=== PATIENT | male | born 1965 | race Asian ===

== ENCOUNTER 2023-10-13 05:55 | Inpatient (IN) | payer BC, SELFPAY ==
[2023-10-08 09:33] VITALS: BMI 25.5
[2023-10-08 10:04] LABS: % Basophils 1.3 % (0-2); % Eosinophils 1.5 % (0-6); % Immature Granulocytes 0.3 % (0-0.5); % Lymphocytes 22.8 % (20.5-51.1); % Monocytes 7.5 % (1.7-9.3); % Neutrophils 66.6 % (42.2-75.2); Absolute Basophils 0.1 10^3/uL (0-0.2); Absolute Eosinophils 0.2 10^3/uL (0-0.7); Absolute Lymphocytes 2.2 10^3/uL (1.2-3.4); Absolute Monocytes 0.7 10^3/uL (0.1-0.6); Absolute Neutrophils 6.5 10^3/uL (1.4-6.5); Hematocrit 47.3 % (39.0-52.0); Hemoglobin 15.5 g/dL (13.0-18.0); Mean Corp Hgb Conc. 32.8 g/dL (33.0-37.0); Mean Corpuscular Hgb 28.3 pg (27.0-31.0); Mean Corpuscular Volume 86.5 fL (80.0-94.0); Mean Platelet Volume 9.3 fL (7.4-10.4); Nucleated Red Blood Cells % 0 % (-); Platelet Count 322 10^3/uL (130-400); Red Blood Cell Count 5.47 10^6/uL (4.70-6.10); Red Cell Dist. Width 14.2 % (11.5-14.5); White Blood Cell Count 9.7 10^3/uL (4.8-10.8)
[2023-10-08 10:13] LABS: Blood Urea Nitrogen 14 mg/dl (9-20); Calcium 9.5 mg/dl (8.4-10.2); Carbon Dioxide 23 mmol/L (22-30); Chloride 106 mmol/L (98-107); Estimated Creatinine Clearance 106 ml/min; Glucose 103 mg/dl (70-99); INR 0.99; PT 13.3 Sec (11.4-14.6); Potassium 3.8 mmol/L (3.5-5.1); Sodium 137 mmol/L (135-145); eGFR > 60.00
[2023-10-08 10:14] LABS: APTT 40.2 Sec (23.4-35.0)
--- NOTE | 2023-10-11 12:13 | PTCARENOTE ---
Fariba in Dr. Turner's office made aware of PTT 40.2.
[2023-10-13] VITALS (9 sets, daily range): BP systolic 95–142; BP diastolic 59–96; BMI 25.8; BMI 25.7
[2023-10-13] MEDS: PERIDEX 0.12% ORAL RINSE 15 ML PO (06:22)
[2023-10-13] MEDS: BACTROBAN NASAL 1 GRAM NASAL (06:22)
[2023-10-13] MEDS: NSS 500 IV (06:23)
[2023-10-13 06:37] LABS: Glucose - Point of Care 117 mg/dl (70-99)
--- NOTE | 2023-10-13 06:49 | W.SUR.PREOP ---
Pre-Operative Surgical Note
-
I have examined this patient prior to the performance of the scheduled procedure.
The patient's condition is unchanged from the time of the current History and
Physical and the patient is able to undergo the scheduled procedure.
--- NOTE | 2023-10-13 10:20 | W.SUR.POST ---
Surgical Immediate Post Op
Note
Pre Op Diagnosis: carotid stenosis
Post Op Diagnosis: same
Procedure Performed: Left CEA with bovine pericardial patch angioplasty and EEG monitoring
Primary Surgeon: Johnny
Assist: PATRICIO Delgado
Anesthesia: General
Estimated Blood Loss: 75cc
Fluids: see anesthesia flow sheet
Drains/Shunts: none
Specimens/Cultures: carotid plaque
Doppler/Duplex/Angio (Y/N): Y
Complications: none
Operative Findings: Woke from anesthesia moving all extremities
[2023-10-13 11:08] LABS: Glucose - Point of Care 134 mg/dl (70-99)
[2023-10-13 11:09] LABS: Hemoglobin 13.6 g/dL (13.0-18.0); Mean Corp Hgb Conc. 33.2 g/dL (33.0-37.0); Mean Corpuscular Hgb 28.1 pg (27.0-31.0); Mean Corpuscular Volume 84.7 fL (80.0-94.0); Mean Platelet Volume 9.5 fL (7.4-10.4); Platelet Count 263 10^3/uL (130-400); Red Blood Cell Count 4.84 10^6/uL (4.70-6.10); Red Cell Dist. Width 14.2 % (11.5-14.5); White Blood Cell Count 11.5 10^3/uL (4.8-10.8)
[2023-10-13] MEDS: NEO-SYNEPHRINE 250 IV (11:10)
[2023-10-13 11:23] LABS: Blood Urea Nitrogen 10 mg/dl (9-20); Calcium 8.5 mg/dl (8.4-10.2); Carbon Dioxide 23 mmol/L (22-30); Chloride 108 mmol/L (98-107); Estimated Creatinine Clearance 123 ml/min; Glucose 156 mg/dl (70-99); Sodium 135 mmol/L (135-145); eGFR > 60.00
[2023-10-13] MEDS: DILAUDID 0.5 MG IV (11:23)
[2023-10-13 11:29] LABS: INR 1.08
[2023-10-13 11:30] LABS: APTT 38.5 Sec (23.4-35.0)
[2023-10-13] MEDS: NSS 1000 IV ×2 (11:34→21:32)
--- NOTE | 2023-10-13 11:35 | OR.RPT ---
Operative Report
Operative Report
PROCEDURE DATE: 10/13/2023
Preoperative diagnosis: Critical asymptomatic left carotid artery stenosis
Postoperative diagnosis: Same
Procedure: Left carotid endarterectomy with bovine pericardial patch angioplasty and intraoperative EEG/SSEP monitoring.
Surgeon: Johnny
[employer] Ground Operations Supervisor: Jenny Delgado COMMERCIAL PROPERTY ADMINISTRATOR, required for all portions of procedure including traction/countertraction, following of suture line, assistance with closure.
Complications: None
Anesthesia: General
Indications for procedure:
Severe bilateral carotid stenoses, underwent right carotid revascularization prior to CABG. Now brought for elective left carotid revascularization. Risk/benefit/alternatives all fully discussed. Patient understood all wish to proceed.
Description of procedure:
Patient was identified brought to the operating room placed on the table in supine position. After the administration of anesthesia, I mapped the carotid bifurcation with the ultrasound. I did note a relatively high carotid bifurcation in the
neck. After the adequate administration of anesthesia and perioperative antibiotics he was prepped and draped in the standard surgical fashion. A standard preoperative timeout was undertaken and everybody was in agreement the plan. A standard
longitudinal incision was made in the left neck that was carried through the skin subcutaneous tissue. Using the electrocautery dissection was carried through the platysma muscle layer and then alongside the anterior medial border of the
sternocleidomastoid muscle. Then using a combination of sharp dissection with the Metzenbaum scissors and electrocautery I dissected along the anterior medial border of the internal jugular vein. The common facial vein branch was ligated between
silk ties and then divided. In addition, there was a slightly higher vein branch that I had to ligate carefully between silk ties and divided. Care was taken to isolate only the vein branches. I then deepened my retraction. The common carotid
artery was identified and carefully dissected away from the surrounding structures take great care to avoid any injury to the structures. I dissected up to the bifurcation and then onto the internal carotid artery. The distal internal carotid
artery was noted to be soft. It was carefully circumferentially dissected here take great care to avoid any injury to the surrounding structures. A vessel loop was passed around it. Note the hypoglossal nerve was seen and preserved from harm's
way. At this point, the common carotid artery was carefully circumferentially dissected and a vessel loop passed around and double looped but not yet tightened.. Note the vagus nerve was protected from harm's way. The patient was given an
appropriate dose of heparin 7000 units. Next I dissected the anterior surface of the external carotid artery and superior thyroid branches. These were then carefully circumferentially dissected with minimal mobilization and vessel loops passed
around these which were double looped but not yet tightened. After 3 minutes of heparin circulation time and confirmation of optimization of the blood pressure with my anesthesiology colleagues, I clamped the distal internal carotid artery where it
was soft. There was no immediate EEG or SSEP changes. After 1 minute of test clamp time there was no changes noted. Therefore at this point, the vessel loops on the external carotid artery and superior thyroid branches were tightened and the
common carotid artery was clamped where it was soft proximally. An arteriotomy was made on the common carotid artery with an 11 blade and extended using a Preciado scissor. The arteriotomy was extended onto the mid to distal internal carotid artery.
We encountered dense plaque with hemorrhagic central component, of mushy consistency. Plaque was very significant and was nearly occlusive completely. A [place] was then used to endarterectomized the plaque. An endarterectomy plane was created, and
the plaque was then endarterectomized. Distally I feathered the plaque out to a nice clean endpoint in the distal internal carotid artery. Next I endarterectomized the intima back to normal intima in the common carotid artery, and the intima was
cut flush there. I then grasped the plaque and everted plaque out of the origin of the external carotid artery. The plaque was then sent off for specimen. The origin of the external carotid artery was carefully visualized and any fine debris were
removed with fine forceps. Proximal and distal endpoints were then carefully inspected. Any fine debris was removed with fine forceps, and the intima was noted to be nicely adherent proximally and distally. Next any fine debris were removed
throughout the endarterectomy bed with fine forceps. Interrupted 7-0 Prolene tacking sutures were placed to tack the distal endpoint. I then flushed heparinized saline. I was very satisfied. Then, I used a bovine pericardial patch to sew a patch
angioplasty with a running 6-0 Prolene suture. Prior to completing and tying down my suture line, I backbled sequentially each branch and reclamped each branch prior to unclamping the next branch. I then irrigated with heparinized saline. Then I
completed and tied down my suture line. We then restored flow in the common carotid and external carotid arteries. Finally, we released flow in the internal carotid artery. There was excellent pulsatile flow in all 3 vessels. There was an
excellent Doppler signal in the internal carotid artery distal to the patch with a good normal low resistance Doppler signal. There was a good Doppler signal in the external carotid artery as well. In order to be certain, I performed on table
duplex with a sterile ultrasound probe, confirming widely patent endarterectomy site and internal carotid artery distal to the patch. Spectral Doppler demonstrated normal velocity profile as well. 6-0 Prolene [id number] sutures were placed
along any bleeding points along the suture line. Protamine was given to reverse the heparin. Hemostasis was completely achieved. This took a bit longer given the oozing nature of the tissues, and some needle hole bleeding noted along the suture
line. But hemostasis was then fully achieved. We then irrigated and confirmed full hemostasis. I then closed in layers with 2-0 Vicryl layer to reapproximate the sternocleidomastoid muscle, followed by 3-0 Vicryl platysma muscle running layer,
followed by 4 Monocryl subcuticular stitch. Dermabond was applied. The patient tolerated procedure well. He awoke moving all extremities to command. His tongue did appear to veer slightly to the left. However, of note the hypoglossal nerve was
clearly noted and preserved from harm's way as referenced above, however due to the high bifurcation we had used an [employer] retractor at the distal/cephalad most region and likely this was mild neuropraxia.
[2023-10-13 12:25] LABS: Magnesium 1.8 mg/dl (1.6-2.3)
[2023-10-13 12:31] LABS: Glucose - Point of Care 133 mg/dl (70-99)
--- NOTE | 2023-10-13 12:55 | PTCARENOTE ---
Addendum entered by Anila Yee RN 10/13/23 15:09:
tongue deviation to left note post up. Upon arriving post up the same tongue deviation to left continue to be noted
Original Note:
1200 transfer from PACU s/p left carotid. transfer via bed. AAO x3. left neck pain 5/10 pain scale level. ICE pack to left neck incision. pain medications offered per prn order, pt refusing at this time, stating that pain relieved by ICe pack at
this time. Neuro check done per protocol , see neuro assessment form. left arterial A/line Zero, + blood returned. left A/lien and RT upper arm blood correlate. Abdomen soft non-tender. pt currently on clear liquid diet. left neck incision ,
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 No edema peripheral pulses strong. Blood sugar 133/no coverage.
[2023-10-13] MEDS: ROXICODONE 5 MG PO ×3 (13:05→21:31)
--- NOTE | 2023-10-13 14:25 | CON.INTV ---
Consultation
Consultation Request
Date/Time Consultation Requested: 10-13-23
Date/Time Consultation Performed: 10-13-23
Requesting Provider: Dr Turner
Performing Provider: Dr Rankin
Reason for Consultation: L
Medical History
-
Chief Complaint: s/p L
History of Present Illness:
Mr Bo Rivera is a 58/M for planned L . Known h/o bilateral CAD, s/p R 07-21-23 prior to CABG as was felt he will be at high cerebrovascular risk during cardiac surgery.
Followed by Dr Turner at office, prepared for L
Seen at ICU, s/p L 10-13-23
Awake, mild L neck incisional pain, no reported change in chronic L tongue deviation to L upon protrusion
Past h/o smoking, not on home O2 or BDs
Past Medical History
Past Medical History: Other (see A&P for PMH/PSH)
Social History
Tobacco: Former Smoker
Alcohol: None
Drug: None
Personal:
Living: With Family
Family History
Family History: Reviewed & Not Pertinent
Allergies / Home Medications
Allergies
Allergy/AdvReac Type Severity Reaction Status Date / Time
blue crabs Allergy Intermediate Itching Uncoded 10/13/23 06:35
Home Medications
Medication Instructions Recorded Confirmed Last Taken Type
aspirin 81 mg tablet,delayed 81 mg PO DAILY Blood Clot 06/30/23 10/13/23 10/13/23 04:00 History
release Prevention/Tx
atorvastatin 20 mg tablet 20 mg PO HS High Cholesterol 06/30/23 10/13/23 10/12/23 20:00 History
metoprolol succinate 25 mg 25 mg PO NOON Heart 06/30/23 10/13/23 10/12/23 12:00 History
tablet,extended release 24 hr Disease/Condition
pantoprazole 40 mg tablet,delayed 40 mg PO HS Gastrointestinal Issue 1010/13/23 10/12/23 20:00 History
release
acetaminophen 325 mg tablet 650 mg PO Q6HPRN PRN mild 07/27/23 10/13/23 10/12/23 12:00 Rx
pain,headache #0 tabs
clopidogrel 75 mg tablet 75 mg PO DAILY Blood clot 07/27/23 10/13/23 10/13/23 04:00 Rx
prevention/tx #90 tabs
empagliflozin 25 mg tablet 25 mg PO DAILY Diabetes #90 tabs 07/27/23 10/13/23 10/09/23 Rx
(Jardiance)
metformin 500 mg tablet 500 mg PO BID@0800,1700 Diabetes 07/27/23 10/13/23 10/13/23 04:00 Rx
#90 tabs
valsartan 80 mg tablet 80 mg PO HS Blood Pressure 10/05/23 10/13/23 10/12/23 20:00 History
Review of Systems
-
History Source: Patient
Cardiac: Other (mild L neck incisional pain)
Vitals / Labs / Diagnostic Testing
Vital Signs
Temp Pulse Resp BP Pulse Ox
98.6 F 62 9 103/66 93
10/13/23 12:16 10/13/23 12:16 10/13/23 12:07 10/13/23 12:16 10/13/23 12:05
Lab Data
10/13/23 11:01
10/13/23 11:01
Laboratory Results
10/13/23
11:01
PT 14.0
INR 1.08
APTT 38.5 H
Diagnostic Testing:
Physical Exam
-
HEENT: Normocephalic and Moist Mucous Membranes
Cardiovascular: Regular Rhythm, Murmur (n), Peripheral Edema and Calf Tenderness
Respiratory: Clear and Non-Labored Respirations
GI: Soft, Non Distended and Non Tender
Neurology: AO x 3 and No Motor Deficits
Skin: Dry
General: Respiratory Distress (n)
Assessment
-
Assessment:
Mr Bo Rivera is a 58/M for planned L . Known h/o bilateral CAD, s/p R 07-21-23 prior to CABG as was felt he will be at high cerebrovascular risk during cardiac surgery. Followed by Dr Turner at office, prepared for L
Impression:
S/p L 10-13-23
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
CAD, s/o CABGx3 07-23-23, also LA appendage ligation
Bilateral carotid disease s/p R CEA 07/21/23
Hypertension
Hyperlipidemia
Type 2 diabetes
Syncope
Former smoker, quit in November 2022
Past h/o ETOH use
Positive snoring, never had a sleep study
PAD with claudication
GERD
Plan
Postoperative surgical intensive care unit monitoring for L 10-13
Supplemental oxygen as needed
Incentive spirometry
Aspiration precautions
Noted past h/o smoking, did resp well post R and CABG in Jul 2023
Neuro and vascular checks per protocol
Vascular surgery following-correspondence and operative notes reviewed
Continue ASA, statin
DVT prophylaxis
Early nutrition
Early mobilization
Critical care time: 35 min
Diagnostic Data:
CXR 10-13-23: portable, lordotic. No gross pulm infiltrates.
CT Scan: H&N 07/08/23- Severe mixed soft and calcific plaque in the bilateral carotid bulbs resulting in focal approximately 82% stenosis of the proximal right internal carotid artery and approximately 84% stenosis of the proximal left internal
carotid artery.
TTE 07-26-23
CONCLUSIONS
Preserved left ventricular function with estimated ejection fraction of 55 to 60%.
Basal inferolateral hypokinesis suspected.
Small pericardial effusion.
Echo: 06/17/23- 1. Normal left ventricular function and EF 65-70%. Stage I diastolic dysfunction. Mild mid to distal septal hypokinesis.
2. Normal RV function.
3. Trace AR and MR.
[facility] 06/24/23: moderate LM ostial lesion, mild-mod prox and mid LAD lesions, severe distal LAD lesion, severe RI and prox lesions, severe RCA, occluded circ, mild PH
--- NOTE | 2023-10-13 15:11 | PTCARENOTE ---
No changed in assessment noted. pt c/of of mild pain. Refusing pain medications per prn order Ice pack applied to left neck incision left neck incision no change in appearance noted able to tolerate clear liquid diet with no difficulties
--- NOTE | 2023-10-13 16:20 | W.PV.INTER ---
VPI Note
Pre Admission Note
Functional Status: Light Work
Ambulation: Ambulate Independently
Pre Op Medications
Pre Op ASA: Yes
Pre Op Statin: Yes
Pre Op CHARLEY Inhibitor/ARB: Yes
Pre Op P2y12 Antagonist: Clopidogrel
Pre Op Beta Blockers: Chronic > 30 Days
Pre Op Chronic Anticoagulant: None
Pre Op Cilostazol: No
Post Op Medications
Post Op ASA: Yes
Post Op Statin: Yes
Post Op CHARLEY Inhibitor/ARB: Yes
Post Op P2y12 Antagonist: Clopidogrel
Post Op Beta Blockers: Chronic > 30 Days
Post Op Chronic Anticoagulant: None
Post Op Cilostazol: No
Modified [place]
Pre Op: 0
Post Op: 0
[2023-10-13] MEDS: HEPARIN 5000 UNITS SC ×2 (16:29→23:09)
[2023-10-13 17:27] LABS: Glucose - Point of Care 148 mg/dl (70-99)
--- NOTE | 2023-10-13 17:30 | PTCARENOTE ---
patient in bed. Neuro checks tongue deviation to left continue to be noted. 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 Oxycodone adm for pain
5/10 pain scale level dinner order call kimble with reach
--- NOTE | 2023-10-13 19:46 | PTCARENOTE ---
pt received. a&ox3. krysta gtt infusing to maintain SBP 100-165. IVF infusing. SR on monitor. + pedal pulses. on RA, clear breath sounds noted. urinal at bedside. L carotid incision with mild swelling, intact and SAMPLER PICKUP. L radial A line zeroed. pt care
ongoing.
[2023-10-13] MEDS: LIPITOR 20 MG PO (21:31)
[2023-10-13] MEDS: PROTONIX 40 MG PO (21:32)
--- NOTE | 2023-10-13 23:57 | PTCARENOTE ---
patient reassessed. krysta gtt infusing, titrating per parameters. assessments unchanged, carotid site MELI with mild swelling. neurovascular checks in tact. denies pain at this time. pt care ongoing.
[2023-10-14] VITALS: BP 105/68
[2023-10-14 04:00] VITALS: BP 114/78
[2023-10-14 04:11] LABS: INR 1.09; PT 14.1 Sec (11.4-14.6)
[2023-10-14 04:12] LABS: APTT 38.6 Sec (23.4-35.0)
[2023-10-14 04:14] LABS: Hematocrit 37.9 % (39.0-52.0); Hemoglobin 12.9 g/dL (13.0-18.0); Mean Corpuscular Hgb 28.5 pg (27.0-31.0); Mean Corpuscular Volume 83.7 fL (80.0-94.0); Mean Platelet Volume 9.6 fL (7.4-10.4); Platelet Count 279 10^3/uL (130-400); Red Blood Cell Count 4.53 10^6/uL (4.70-6.10); White Blood Cell Count 11.9 10^3/uL (4.8-10.8)
[2023-10-14 04:24] LABS: Blood Urea Nitrogen 12 mg/dl (9-20); Calcium 8.9 mg/dl (8.4-10.2); Carbon Dioxide 21 mmol/L (22-30); Chloride 104 mmol/L (98-107); Estimated Creatinine Clearance 121 ml/min; Glucose 138 mg/dl (70-99); Sodium 136 mmol/L (135-145); eGFR > 60.00
--- NOTE | 2023-10-14 04:28 | PTCARENOTE ---
patient reassessed, assessments unchanged. L carotid site intact. AM labs sent. pt resting comfortably in bed. pt care ongoing.
[2023-10-14 06:00] VITALS: BMI 25.8
[2023-10-14] MEDS: ASPIR LOW (ENTERIC COATED) 81 MG PO (07:37)
[2023-10-14] MEDS: PLAVIX 75 MG PO (07:37)
[2023-10-14] MEDS: HEPARIN 5000 UNITS SC (07:38)
--- NOTE | 2023-10-14 07:51 | W.PN.INTV ---
Today's Communication / Plan
Recommendations
D/c
Assessment
-
Assessment:
Mr Bo Rivera is a 58/M for planned L . Known h/o bilateral CAD, s/p R 07-21-23 prior to CABG as was felt he will be at high cerebrovascular risk during cardiac surgery. Followed by Dr Turner at office, prepared for L
Impression:
S/p L 10-13-23
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
CAD, s/o CABGx3 07-23-23, also LA appendage ligation
Bilateral carotid disease s/p R CEA 07/21/23
Hypertension
Hyperlipidemia
Type 2 diabetes
Syncope
Former smoker, quit in November 2022
Past h/o ETOH use
Positive snoring, never had a sleep study
PAD with claudication
GERD
Plan
Postoperative surgical intensive care unit monitoring for L 10-13
Supplemental oxygen as needed
Incentive spirometry
Aspiration precautions
Noted past h/o smoking, did resp well post R and CABG in Jul 2023
Neuro and vascular checks per protocol
Vascular surgery following-correspondence and operative notes reviewed
Completed hemodyn monitoring
Continue ASA, statin
DVT prophylaxis
Early nutrition
Early mobilization
Disposition
Reconsult prn
Diagnostic Data:
CXR 10-13-23: portable, lordotic. No gross pulm infiltrates.
CT Scan: H&N 07/08/23- Severe mixed soft and calcific plaque in the bilateral carotid bulbs resulting in focal approximately 82% stenosis of the proximal right internal carotid artery and approximately 84% stenosis of the proximal left internal
carotid artery.
TTE 07-26-23
CONCLUSIONS
Preserved left ventricular function with estimated ejection fraction of 55 to 60%.
Basal inferolateral hypokinesis suspected.
Small pericardial effusion.
Echo: 06/17/23- 1. Normal left ventricular function and EF 65-70%. Stage I diastolic dysfunction. Mild mid to distal septal hypokinesis.
2. Normal RV function.
3. Trace AR and MR.
[facility] 06/24/23: moderate LM ostial lesion, mild-mod prox and mid LAD lesions, severe distal LAD lesion, severe RI and prox lesions, severe RCA, occluded circ, mild PH
Subjective Dataa
Subjective Data
Date of Service:
Date of Service: October 14, 2023
Chief Complaint: Transcriber Follow Up
Subjective:
No major events overnight
Remains clinically stable
Review of Systems
General: Fever (n), Sweats (n), Chills (n) and Satisfactory Appetite
HEENT: Epistaxis (n) and Dysphagia
Cardiopulmonary: Dyspnea (n), Cough (n) and Chest Pain
GI: Abdominal Pain (n), Nausea and Vomiting (n)
Neuro: Weakness (n)
Objective Data
Data Reviewed
Vital Signs / I&O / Oxygen:
Vital Signs
Temp Pulse Resp BP Pulse Ox
98.1 F 67 15 114/78 97
10/14/23 04:49 10/14/23 07:45 10/14/23 07:45 10/14/23 04:00 10/14/23 07:00
Intake and Output
10/13/23 10/14/23 10/15/23
06:59 06:59 06:59
Intake Total 3224 / 3224
Output Total 2500 / 2500 400 / 400
Balance 724 / 724 -400 / -400
SaO2 97
Physical Exam
General: Comfortable
HEENT: Normocephalic and Moist Mucous Membranes
Cardiovascular: Regular Rhythm, Murmur (n) and Peripheral Edema (n)
Respiratory: Clear, Non-Labored Respirations and Stridor (n)
GI: Soft, Non Distended and Non Tender
Neurology: Awake, AO x 3 and No Motor Deficits
Skin: Dry
Labs/Micro/Reports
Lab Data
10/14/23 03:26
10/14/23 03:26
Laboratory Results
10/13/23 10/14/23
11: 03:26
PT 14.0 14.1
INR 1.08 1.09
APTT 38.5 H 38.6 H
[2023-10-14 08:00] VITALS: BP 91/53
--- NOTE | 2023-10-14 08:01 | W.PN.VS ---
Today's Communication / Plan
-
Seen and assessed with Dr Turner
Assessment/Plan
-
S/p CEA
Plan:
-DC paulino
-DC IVF
-OOB
-Diet
-Ambulate
-Likely dc later today
Subjective Data
-
Date of Service: October 14, 2023
Pt seen at bedside this am with Dr Turner. Pt offers no complaints at this time. No events overnight.
Objective Data
-
Vital Signs
Temp Pulse Resp BP Pulse Ox
98.3 F 67 15 114/78 97
10/14/23 07:30 10/14/23 07:45 10/14/23 07:45 10/14/23 04:00 10/14/23 07:00
Intake and Output
10/13/23 10/14/23 10/15/23
06:59 06:59 06:59
Intake Total 3224 / 3224
Output Total 2500 / 2500 400 / 400
Balance 724 / 724 -400 / -400
Intake:
Oral fluids 1440 / 1440
IV fluids (Total) 1784 / 1784
krysta 164 / 164
nss 1620 / 1620
Output:
Urine, Voided 2500 / 2500 400 / 400
Lab Results
10/14/23 03:26
10/14/23 03:26
Calcium 8.9 mg/dl (8.4-10.2) 10/14/23 03:26
Magnesium 1.8 mg/dl (1.6-2.3) 10/13/23 11:01
Physical Exam
-
AAOx3
No tachypnea
No tachycardia
Abd soft
Neck site c/d/i, no hematoma or drainage
moves all extremities equally, follows commands
[2023-10-14 08:05] LABS: Glucose - Point of Care 87 mg/dl (70-99)
--- NOTE | 2023-10-14 08:15 | W.PN.VS ---
Today's Communication / Plan
-
See plan below for today 10/14/2023.
Assessment/Plan
-
Postoperative day #1 status post left carotid endarterectomy. Discontinue arterial line, Hep-Lock IV fluids. Out of bed, ambulate. Patient notes he is already voided well. Likely discharge later today.
-
Total Time Spent with Patient (in minutes): 15
Subjective Data
-
Date of Service: October 14, 2023
Patient without significant complaints this morning.
Objective Data
-
Vital Signs
Temp Pulse Resp BP Pulse Ox
98.3 F 67 15 114/78 97
10/14/23 07:30 10/14/23 07:45 10/14/23 07:45 10/14/23 04:00 10/14/23 07:00
Intake and Output
10/13/23 10/14/23 10/15/23
06:59 06:59 06:59
Intake Total 3224 / 3224
Output Total 2500 / 2500 400 / 400
Balance 724 / 724 -400 / -400
Intake:
Oral fluids 1440 / 1440
IV fluids (Total) 1784 / 1784
krysta 164 / 164
nss 1620 / 1620
Output:
Urine, Voided 2500 / 2500 400 / 400
Lab Results
10/14/23 03:26
10/14/23 03:26
Calcium 8.9 mg/dl (8.4-10.2) 10/14/23 03:26
Magnesium 1.8 mg/dl (1.6-2.3) 10/13/23 11:01
Physical Exam
-
Afebrile. He is awake and alert. No acute distress. Left neck incision is clean dry and intact. No significant hematoma. Neurologically moves all extremities well. Tongue still veers mildly to the left, but improved already.
Labs reviewed.
[2023-10-14 09:42] VITALS: BP 113/80
[2023-10-14 10:00] VITALS: BP 108/77
--- NOTE | 2023-10-14 11:00 | W.DS.TRANS ---
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
-
Discharge Instructions:
Discharge Diagnosis/Procedures Left carotid endarterectomy
Diet As tolerated
Activity No strenuous activity
Driving Restrictions Not until seen by your Dr
Bathing Restrictions OK to Shower
Instructions:
Stand-Alone Forms: DC Instr - Vascular OR
Changes to Home Medications: No
Discharge Medications:
DC Medications w/original date entered in [employer]
aspirin 81 mg tablet,delayed release 81 mg PO DAILY Blood Clot Prevention/Tx 06/30/23
atorvastatin 20 mg tablet 20 mg PO HS High Cholesterol 06/30/23
metoprolol succinate 25 mg tablet,extended release 24 hr 25 mg PO NOON Heart Disease/Condition 06/30/23
pantoprazole 40 mg tablet,delayed release 40 mg PO HS Gastrointestinal Issue 06/30/23
acetaminophen 325 mg tablet 650 mg PO Q6HPRN PRN mild pain,headache #0 tabs 07/27/23
clopidogrel 75 mg tablet 75 mg PO DAILY Blood clot prevention/tx #90 tabs 07/27/23
empagliflozin 25 mg tablet (Jardiance) 25 mg PO DAILY Diabetes #90 tabs 07/27/23
metformin 500 mg tablet 500 mg PO BID@0800,1700 Diabetes #90 tabs 07/27/23
valsartan 80 mg tablet 80 mg PO HS Blood Pressure 10/05/23
Home Medication Changes
Pending Results: No
--- NOTE | 2023-10-14 11:01 | W.DCSUMMARY ---
Discharge Summary
Discharge Data
Date of Admission: 10/13/23
Date of Discharge: 10/14/23
-
Pending Results: No
Hospital Course
Attending: Raymond Tunrer
Consultants: Pulmonary medicine
Allergies: Crab
Procedure with date: September 13, 2023: Left carotid endarterectomy with bovine pericardial patch angioplasty and EEG monitoring
History of present illness: The patient is an 58-year-old male with multiple medical conditions including: carotid stenosis, hypertension, hyperlipidemia, type 2 diabetes, syncope, claudication, coronary artery disease with bypass, gastroesophageal
reflux disease, and ischemic cardiomyopathy. Patient presented on October 13, 2023 for scheduled procedure with Dr. Turner. Patient presented at baseline health with no reports of recent illness or trauma.
Hospital Course: Briefly, the patient underwent scheduled carotid endarterectomy without complications, and recovered in PACU. Following recovery phase one and two patient was transferred to intensive care unit per protocol for continued hemodynamic
monitoring. Cylindrical Mixer consulted to aid in medical management from a critical care perspective. POD #1 (10/14/2023) Patient neurologically intact, face symmetrical, and tolerating PO diet. Surgical site clean, dry, and intact with suture line well
approximated and soft. No evidence of hematoma. Arterial line and IV fluids discontinued. Patient able to ambulate without difficulty or incident. Patient stable for discharge to home.
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 All instructions were given to the patient in both written and verbal form and the patient expressed understanding.
Discharge Plan
-
Patient Disposition: Home (Routine Discharge)
Discharge Diagnosis/Procedures: Left carotid endarterectomy
Condition: Good
Diet: As tolerated
Activity: No strenuous activity
Driving Restrictions: Not until seen by your Dr
Bathing Restrictions: OK to Shower
Activity Restrictions/Additional Instructions:
If you experience severe constant headache, weakness to an arm or leg, change in vision, trouble speaking or any stroke-like symptom, call 911 immediately
If you experience swelling, increased bruising, drainage from neck site, or fever, please call the office
Stand Alone Forms: DC Instr - Vascular OR
Referrals:
Amena Wiseman DO [Family Provider] -
Senait Jordan PA-C [Specified Professional Personl] - 10/27/23 9:30 am (Vascular follow up)
Prescriptions:
Continued
atorvastatin 20 mg Tablet
20 mg PO HS
aspirin 81 mg Tablet,Delayed Release (Dr/Ec)
81 mg PO DAILY
pantoprazole 40 mg Tablet,Delayed Release (Dr/Ec)
40 mg PO HS
metoprolol succinate 25 mg Tablet Extended Release 24 Hr
25 mg PO NOON
acetaminophen 325 mg Tablet
650 mg PO Q6HPRN PRN (Reason: mild pain,headache) Qty: 0 0RF
clopidogrel 75 mg Tablet
75 mg PO DAILY Qty: 90 0RF
Jardiance 25 mg Tablet
25 mg PO DAILY Qty: 90 1RF
metformin 500 mg Tablet
500 mg PO BID@0800,1700 Qty: 90 1RF
valsartan 80 mg Tablet
80 mg PO HS
Discharge Orders:
Discharge Patient (As Directed); Ordered 10/14/23
Ordered By: Allison Weathers
--- NOTE | 2023-10-14 11:26 | CM ---
CM following re: discharge planning.
Discussed in Rounds, reviewed pt's chart, met with pt.
Pt is a 58 year old male, admitted with primary dx of POD #1 status post left carotid endarterectomy
Pt reports he was born and raised in [place], emig[place] [place] 16 years ago, resides with spouse and a son in an apartment, 4 steps to enter. 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 No DME, VN or SNF history.
PCP: Amena Wiseman
Pharmacy: [facility] [place]
Discharge order noted. Pt is aware and he stated his spouse and son are coming to transport home.
D/C plan: home with no needs. Family to transport.
--- NOTE | 2023-10-14 11:42 | PTCARENOTE ---
A-line and IVF d/c'd this am per order. Pt OOB and ambulated in hallway with steady gait. AAOx3. PEDRITO. Reviewed all discharge instructions, including f/u visits and medications. IVs and tele monitor d/c'd. Pt awaiting his ride home.
== END 2023-10-14 12:27 | disposition home or self-care (01) | DRG 38 ==
LOC: ICU 05:55
PROVIDERS: Nurse Practitioner Acute Care; ADMITTING PHYSICIAN Surgery Vascular Surgery; FAMILY PHYSICIAN Internal Medicine; OTHER PHYSICIAN Internal Medicine Pulmonary Disease
PROC: 03CJ0ZZ Extirpation of Matter from Left Common Carotid Artery, Open Approach (ICD-10-PCS; 2023-10-13)
PROC: 03CN0ZZ Extirpation of Matter from Left External Carotid Artery, Open Approach (ICD-10-PCS; 2023-10-13)
PROC: 03UJ0KZ Supplement Left Common Carotid Artery with Nonautologous Tissue Substitute, Open Approach (ICD-10-PCS; 2023-10-13)
DX: I65.22 Occlusion and stenosis of left carotid artery (principal); I25.810 Atherosclerosis of coronary artery bypass graft(s) without angina pectoris; I31.39 Other pericardial effusion (noninflammatory); Z87.891 Personal history of nicotine dependence; I10 Essential (primary) hypertension; E78.5 Hyperlipidemia, unspecified; E11.51 Type 2 diabetes mellitus with diabetic peripheral angiopathy without gangrene; K21.9 Gastro-esophageal reflux disease without esophagitis; Z79.82 Long term (current) use of aspirin; I25.5 Ischemic cardiomyopathy
CPT/HCPCS: 88304; 88305; 35301; 36415; 71045; 80048; 82962; 83735; 85025; 85027; 85610; 85730; 86850; 86900; 86901

== ENCOUNTER → 2023-12-03 11:10 | Outpatient (REF) | payer BC, SELFPAY | LOC: RAD 11:10 | PROVIDERS: ATTENDING PHYSICIAN Registered Nurse; FAMILY PHYSICIAN Internal Medicine | DX: I65.23 Occlusion and stenosis of bilateral carotid arteries (principal) | CPT/HCPCS: 93880 ==

== ENCOUNTER → 2024-07-10 10:34 | Outpatient (REF) | payer BC, SELFPAY | LOC: DHVS 10:34 | PROVIDERS: ATTENDING PHYSICIAN Surgery Vascular Surgery; FAMILY PHYSICIAN Internal Medicine | DX: I65.23 Occlusion and stenosis of bilateral carotid arteries (principal) | CPT/HCPCS: 93880 ==

== ENCOUNTER → 2025-01-29 08:48 | Outpatient (REF) | payer BC, SELFPAY | LOC: DHVS 08:48 | PROVIDERS: ATTENDING PHYSICIAN Surgery Vascular Surgery; FAMILY PHYSICIAN Internal Medicine | DX: I73.9 Peripheral vascular disease, unspecified (principal); I65.23 Occlusion and stenosis of bilateral carotid arteries | CPT/HCPCS: 93880; 93922 ==

== ENCOUNTER → 2025-05-18 08:12 | Outpatient (REF) | payer BC, SELFPAY | LOC: RAD 08:12 | PROVIDERS: ATTENDING PHYSICIAN Registered Nurse; FAMILY PHYSICIAN Internal Medicine | DX: I73.9 Peripheral vascular disease, unspecified (principal) | CPT/HCPCS: 93922 ==

== ENCOUNTER → 2025-07-19 10:33 | Outpatient (REF) | payer BC, SELFPAY | LOC: RAD 10:33 | PROVIDERS: ATTENDING PHYSICIAN Registered Nurse; FAMILY PHYSICIAN Internal Medicine | DX: I65.23 Occlusion and stenosis of bilateral carotid arteries (principal) | CPT/HCPCS: 93880 ==